=== PATIENT | male | born 1970 | race Caucasian/White ===

== ENCOUNTER 2023-04-25 22:29 | Emergency (ER) | payer OTHER ==
[~2023-04-25] VITALS: Ht 177.8 cm; Wt 78.0 kg
[2023-04-25 22:40] VITALS: BP 123/77
[2023-04-25] MEDS ORDERED: LORazepam 1 MG tablet PO ONE (23:05)
== END 2023-04-25 23:47 | disposition home or self-care (01) ==
LOC: ER 22:30
DX: F41.9 Anxiety disorder, unspecified (principal); F12.90 Cannabis use, unspecified, uncomplicated
CPT/HCPCS: 93005; 99283